=== PATIENT | male | born 1930 | race Caucasian/White ===

== ENCOUNTER 2018-02-11 09:18 | Inpatient (IN) | payer OTHER ==
[~2018-02-11] VITALS: Ht 172.7 cm; Wt 67.6 kg
[~2018-02-11 09:18] MED LIST: ASPIR 8181 MG PO; BACTRIM DS TAB1 EACH PO; CENTRUM SILVER1 EACH PO; CLEOCIN HCL150 MG PO; FISH OIL 1,001000 M2 PO; FLOMAX0.4 MG PO; FOLIC ACID1 MG PO; LORTAB 5-325 M1 EACH PO; METHOTREXATE 22.5 MG PO; NORCO 5-325 TA1 EACH PO; PREDNISONE10 MG PO
[2018-02-11 09:35] VITALS: BP 170/72
[2018-02-11] MEDS ORDERED: CINNAMON500 MG PO (09:39)
[2018-02-11] MEDS ORDERED: FLOMAX0.4 MG PO (09:40)
[2018-02-11] MEDS ORDERED: PROSCAR 5MG TABL5 MG PO (09:40)
[2018-02-11] MEDS ORDERED: CITRACAL + D E1 EACH PO (09:41)
[2018-02-11 09:51] LABS: URINE BILIRUBIN NEGATIVE (Negative); URINE BLOOD NEGATIVE (Negative); URINE CLARITY CLEAR; URINE COLOR YELLOW; URINE GLUCOSE-RANDOM NEGATIVE (Negative); URINE KETONES NEGATIVE (Negative); URINE LEUKOCYTES-REFLEX TRACE (Negative); URINE NITRITE-REFLEX NEGATIVE (Negative); URINE PROTEIN NEGATIVE (Negative); URINE SPECIFIC GRAVITY 1.015 (1.005-1.030); URINE UROBILINOGEN 0.2 E.U./dl (0.2-1.0)
[2018-02-11 09:55] LABS: MCH 32.9 pg (26.0-34.0); MCHC 33.4 g/dL (28.0-37.0); MCV 98.6 fL (80.0-100.0); MPV 9.1 fl. (7.2-11.1); NUCLEATED RBCS 0 /100WBC; PLATELET COUNT* 213 thou/uL (150-400); RBC 3.95 mil/uL (4.50-6.00); WBC 4.4 thou/uL (4.0-11.0)
[2018-02-11 10:00] LABS: ANION GAP 4 mmol/L (7-16); BUN 16 mg/dL (7-18); CALCIUM 8.6 mg/dL (8.5-10.1); CHLORIDE 105 mmol/L (98-107); CO2 34 mmol/L (21-32); CREATININE 1.6 mg/dL (0.6-1.3); GLUCOSE 124 mg/dL (70-99); POTASSIUM 3.8 mmol/L (3.5-5.1); SODIUM 143 mmol/L (136-145)
[2018-02-11 10:06] LABS: ALBUMIN 3.5 g/dL (3.4-5.0); ALKALINE PHOSPHATASE 86 U/L (46-116); LIPASE 191 U/L (73-393); SGOT 19 U/L (15-37); SGPT 23 U/L (30-65); TOTAL BILIRUBIN 0.7 mg/dL (<0.1-1.0); TOTAL PROTEIN 6.5 g/dL (6.4-8.2); TROPONIN-I LEVEL <0.06 ng/mL (<0.06)
[2018-02-11 10:37] LABS: ABSOLUTE EOSINOPHILS 0.2 thou/uL (0.0-0.7); ABSOLUTE LYMPHOCYTES 0.4 thou/uL (0.8-5.3); ABSOLUTE MONOCYTES 0.2 thou/uL (0.0-1.2); ABSOLUTE NEUTROPHILS 3.6 thou/uL (1.6-8.1); PLATELET ESTIMATE ADEQUATE
[2018-02-11 12:41] VITALS: BP 115/58
[2018-02-11 15:06] VITALS: BP 115/58
[2018-02-11 15:26] VITALS: BP 127/63
--- NOTE | 2018-02-11 18:16 | EKG ---
[place] [address] ELECTROCARDIOGRAM REPORT Name: ANGELA CASTILLOJEAN PIERRE Mccloud SR Room: [address] ADM IN .R.#: [id number] Admission: 02/11/18 Attend Phys: Vinh Baltazar MD Discharge: Date of : 32 Report #: [id number] THIS REPORT FOR: //name// [facility] ED Test Date: 2018-02-11 Test Time: 10:19:23 Pat Name: JODY CASTILLO Department: Room: [facility] Gender: M Talent Development Coordinator: ADOLPH : 1930 Requested By: Jesus Drummond Order Number: [id number] MD: Jordy Riley Measurements Intervals [place] Rate: 51 P: 45 NM: 172 QRS: -16 QRSD: 91 T: 64 QT: 431 QTc: 397 Interpretive Statements Sinus bradycardia poor r wave progression Ventricular premature complex Borderline left axis deviation Compared to ECG 02/24/2016 14:00:58 rate increased Electronically Signed On 02-11-2018 18:16:09 CDT by Jordy Riley [email or web address] <ELECTRONICALLY SIGNED> By: Jordy Riley MD, [facility] 02/11/18 1816 1019 [id number] Jordy Riley MD, [facility] /EPI
[2018-02-11 20:40] VITALS: BP 125/57
[2018-02-12 04:10] LABS: ABSOLUTE EOSINOPHILS 0.2 thou/uL (0.0-0.7); ABSOLUTE LYMPHOCYTES 0.5 thou/uL (0.8-5.3); ABSOLUTE MONOCYTES 0.5 thou/uL (0.0-1.2); BASOPHILS 0.7 %; EOSINOPHILS 5.2 %; HEMATOCRIT 32.3 % (42.0-52.0); MCH 33.1 pg (26.0-34.0); MCHC 33.4 g/dL (28.0-37.0); MCV 98.9 fL (80.0-100.0); MONOCYTES 11.8 %; MPV 8.8 fl. (7.2-11.1); NUCLEATED RBCS 0 /100WBC; PLATELET COUNT* 193 thou/uL (150-400); POLYS 71.3 %; RBC 3.27 mil/uL (4.50-6.00); RDW-CV 14.7 % (10.5-14.5); WBC 4.2 thou/uL (4.0-11.0)
[2018-02-12 04:33] LABS: CALCIUM 8.4 mg/dL (8.5-10.1); CREATININE 1.5 mg/dL (0.6-1.3); POTASSIUM 4.5 mmol/L (3.5-5.1)
[2018-02-12 04:48] LABS: HEMOGLOBIN 10.8 gm/dL (14.0-18.0)
[2018-02-12 08:39] VITALS: BP 125/57
== END 2018-02-12 09:50 | disposition home or self-care (01) | DRG 683 ==
LOC: M.ERS 09:18 → M.ORTHSURG 12:37 → M.TBA-ER 12:37 → M.ORTHSURG 14:55
PROVIDERS: Family Medicine; ADMIT Internal Medicine
DX: N17.9 Acute kidney failure, unspecified (principal); N20.2 Calculus of kidney with calculus of ureter; M06.9 Rheumatoid arthritis, unspecified; N40.0 Benign prostatic hyperplasia without lower urinary tract symptoms; M19.90 Unspecified osteoarthritis, unspecified site; N18.3 Chronic kidney disease, stage 3 (moderate); Z87.442 Personal history of urinary calculi; Z88.0 Allergy status to penicillin; Z88.8 Allergy status to other drugs, medicaments and biological substances; Z88.1 Allergy status to other antibiotic agents; Z91.041 Radiographic dye allergy status; Z79.82 Long term (current) use of aspirin; Z79.899 Other long term (current) drug therapy

== ENCOUNTER 2018-02-28 14:01 | Inpatient (IN) | payer OTHER ==
[~2018-02-28] VITALS: Ht 172.7 cm; Wt 65.3 kg
[~2018-02-28 14:01] MED LIST changes: +CINNAMON500 MG PO; +CITRACAL + D E1 EACH PO; +PROSCAR 5MG TABL5 MG PO
[2018-02-28 14:14] VITALS: BP 158/71
[2018-02-28 14:44] LABS: MCH 32.6 pg (26.0-34.0); MCHC 33.3 g/dL (28.0-37.0); MCV 97.8 fL (80.0-100.0); MPV 8.8 fl. (7.2-11.1); NUCLEATED RBCS 0 /100WBC; PLATELET COUNT* 231 thou/uL (150-400); RBC 3.99 mil/uL (4.50-6.00); RDW-CV 14.9 % (10.5-14.5); WBC 5.3 thou/uL (4.0-11.0)
[2018-02-28 14:52] LABS: CALCIUM 9.5 mg/dL (8.5-10.1); CREATININE 1.5 mg/dL (0.6-1.3); POTASSIUM 4.1 mmol/L (3.5-5.1)
[2018-02-28 14:56] LABS: ALBUMIN 3.8 g/dL (3.4-5.0); TOTAL BILIRUBIN 0.6 mg/dL (<0.1-1.0); TOTAL PROTEIN 6.6 g/dL (6.4-8.2)
[2018-02-28 15:24] LABS: ABSOLUTE EOSINOPHILS 0.1 thou/uL (0.0-0.7); ABSOLUTE LYMPHOCYTES 0.4 thou/uL (0.8-5.3); ABSOLUTE MONOCYTES 0.3 thou/uL (0.0-1.2); ABSOLUTE NEUTROPHILS 4.6 thou/uL (1.6-8.1); ATYPICAL LYMPHS 4 %; PLATELET ESTIMATE ADEQUATE
[2018-02-28 17:08] LABS: URINE BILIRUBIN NEGATIVE (Negative); URINE BLOOD 2+ (Negative); URINE CLARITY CLEAR; URINE COLOR YELLOW; URINE GLUCOSE-RANDOM NEGATIVE (Negative); URINE KETONES NEGATIVE (Negative); URINE PROTEIN NEGATIVE (Negative); URINE UROBILINOGEN 0.2 E.U./dl (0.2-1.0)
[2018-02-28 17:14] LABS: URINE LEUKOCYTES-REFLEX 3+ (Negative); URINE NITRITE-REFLEX POSITIVE (Negative)
[2018-02-28 17:23] VITALS: BP 124/70
[2018-02-28 17:36] LABS: SQUAMOUS 0-3 Few /LPF (0-3); URINE RBC 3-10 Few /HPF (0-2); URINE WBC-REFLEX >25 Many /HPF (0-5)
[2018-02-28 17:37] LABS: BACTERIA-REFLEX 1-9 Few /HPF (None Seen); CASTS None Seen /LPF (None Seen); CRYSTALS None Seen /LPF (None Seen); MUCUS 0-3 Light strn/LPF (None Seen)
[2018-02-28 17:50] VITALS: BP 136/81
[2018-02-28 20:15] VITALS: BP 132/68
[2018-03-01 03:25] LABS: HEMATOCRIT 34.5 % (42.0-52.0); HEMOGLOBIN 11.8 gm/dL (14.0-18.0); MCH 33.7 pg (26.0-34.0); MCHC 34.1 g/dL (28.0-37.0); MCV 98.7 fL (80.0-100.0); RBC 3.5 mil/uL (4.50-6.00); RDW-CV 14.5 % (10.5-14.5); WBC 7.8 thou/uL (4.0-11.0)
[2018-03-01 03:58] LABS: CALCIUM 8.3 mg/dL (8.5-10.1); CREATININE 1.4 mg/dL (0.6-1.3); MAGNESIUM 1.9 mg/dL (1.8-2.4); POTASSIUM 4.3 mmol/L (3.5-5.1); TOTAL BILIRUBIN 0.4 mg/dL (<0.1-1.0); TOTAL PROTEIN 5.2 g/dL (6.4-8.2)
[2018-03-01 08:35] VITALS: BP 134/65
[2018-03-01] MEDS ORDERED: AMOXICILLIN 50500 MG PO (09:51)
[2018-03-01 10:01] VITALS: BP 134/65
[2018-03-01 16:39] VITALS: BP 146/55
[2018-03-01 20:15] VITALS: BP 146/58
[2018-03-02 03:59] LABS: HEMATOCRIT 37.6 % (42.0-52.0); HEMOGLOBIN 12.4 gm/dL (14.0-18.0); MCH 32.8 pg (26.0-34.0); MCV 99.2 fL (80.0-100.0); MPV 8.7 fl. (7.2-11.1); RBC 3.79 mil/uL (4.50-6.00); RDW-CV 14.8 % (10.5-14.5); WBC 7.7 thou/uL (4.0-11.0)
[2018-03-02 04:09] LABS: CALCIUM 8.9 mg/dL (8.5-10.1); CREATININE 1.4 mg/dL (0.6-1.3); MAGNESIUM 1.9 mg/dL (1.8-2.4)
[2018-03-02 08:30] VITALS: BP 146/71
--- NOTE | 2018-03-05 18:23 | CON ---
[address] [address] CONSULTATION Name: JODY CASTILLO Rogers HOUSE Room: [address] IN .R.#: [id number] Admission: 02/28/18 Attend Phys: Markus Kinsey, Discharge: 03/02/18 Date of : 32 Report #: [id number] THIS REPORT FOR: //name// CC: Markus Garces CONSULTING PHYSICIAN: Dr. Kinsey. REASON FOR NEPHROLOGY CONSULTATION: Elevated creatinine. REASON FOR ADMISSION: Right flank pain. HISTORY OF PRESENT ILLNESS: This is an 87-year-old male with past medical history of bilateral renal calculi, left renal atrophy who came in with right flank pain and urinary retention on 02/28/2018. Hsu catheter was placed to help relieve his urinary retention. He takes tamsulosin for BPH. He has a history of kidney stones for about [address] Dr[address] Camara from Urology. At this time, on imaging, he was found to have a right ureteral stone, which was 2 mm in his proximal ureter with bilateral hydronephrosis and right hydroureteronephrosis. Hsu catheter was placed. He also has UTI and he was started on treatment for that. Plan is actually for him to go home today and he is going to follow with Urology as an outpatient for ureteroscopy. He does not take any NSAIDs at home and denies any history of diabetes or hypertension. His baseline kidney function shows that he actually has chronic kidney disease stage 3. His baseline creatinine runs from 1.4 to 1.8. He is currently feeling very good. His symptoms have resolved. ALLERGIES: CEFTRIAXONE, CEPHALOSPORINS, CIPROFLOXACIN, CONTRAST DYE, DESIPRAMINE, ETODOLAC, HYDROXYCHLOROQUINE, INDOMETHACIN, OFLOXACIN, QUINOLONES. REVIEW OF SYSTEMS: As mentioned in history of present illness, otherwise negative and his right flank pain is now resolved. MEDICATIONS: Home medications include tamsulosin, methotrexate, prednisone, aspirin, folic acid, fish oil, cinnamon bark, finasteride, calcium, amoxicillin. PAST MEDICAL AND SURGICAL HISTORY: Includes kidney stones, started 15 years ago, left ureter surgery. 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 He had abdominal hernia surgery, prostate biopsy ____, arthritis. Recent diagnosis of nonobstructing right kidney stones and also right hydroureteronephrosis. FAMILY HISTORY: Noncontributory. SOCIAL HISTORY: Does not smoke, drink alcohol or use illicit drug. Lives at home. PHYSICAL EXAMINATION: [place] [address] CONSULTATION Name: JODY CASTILLO Room: [address]#: [id number] Admission: 02/28/18 Attend Phys: Markus Kinsey, Discharge: 03/02/18 Date of : 32 Report #: [id number] VITAL SIGNS: Blood pressure is 146/58, respiratory rate is 18, pulse 77, temperature 36.5 and his pulse ox is 99% on room air. GENERAL: He is awake and alert, oriented x 3. HEAD, EYES, EARS, NOSE AND THROAT: Mucous membranes are moist. NECK: There is no JVD. CHEST: Clear to auscultation bilaterally. No crackles or wheezing. CARDIOVASCULAR: S1, S2 normal. No murmurs or rubs. ABDOMEN: Soft, nondistended, nontender. Bowel sounds are present. EXTREMITIES: There is no lower extremity edema, symmetrical lower extremities. NEUROLOGIC: Gross neurological function is intact. ____ GENITOURINARY: No CVA tenderness. He has a Hsu catheter in place with clear urine. LABORATORY DATA: His hemoglobin is 12.4. Sodium is 145, potassium 4.0 and CO2 is 35, creatinine is 1.4, and magnesium is 1.9. Other labs were reviewed. IMAGING: Abdominal CT was reviewed. ASSESSMENT AND PLAN: 1. 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 UA showed evidence of UTI with 2+ blood, 3-10 rbc's per high power field. No protein on urine dipstick. 2. Bilateral hydronephrosis, right hydroureteronephrosis and right proximal 10 mm stone, Urology is following, also has urinary retention. 3. Acute urinary retention, has a history of benign prostatic hypertrophy, Hsu catheter in place and Urology is following. 4. Right flank pain, which is now resolved. 5. Urinary tract infection. PLAN: 1. Creatinine is actually at the patient's baseline. Avoid NSAIDs and avoid Bactrim. 2. The patient is to follow up with us as an outpatient in 2-3 weeks after discharge, so that we can run a 24-hour urinalysis on him and help with stone prevention. 3. Two liters of water intake recommended along with low-sodium diet. 4. UTI, being treated by primary team with amoxicillin as an outpatient now. Thank you for the consultation and we would love to see him as an outpatient since he does have chronic kidney disease. The [place] [address] CONSULTATION Name: JODY CASTILLO Room: [address]#: [id number] Admission: 02/28/18 Attend Phys: Markus Kinsey, Discharge: 03/02/18 Date of : 32 Report #: [id number] closely followed with Urology. Plan was discussed with the patient, the patient's family as well as the patient's nurse. <ELECTRONICALLY SIGNED> By: Carmen Whitman MD 03/05/18 1823 1008 [id number] Whitman MD /nt
== END 2018-03-02 14:43 | disposition home or self-care (01) | DRG 690 ==
LOC: M.ERS 14:01 → M.ORTHSURG 16:47 → M.TBA-ER 16:47 → M.ORTHSURG 17:01
PROVIDERS: Nurse Practitioner Family; ADMIT Family Medicine
DX: N13.6 Pyonephrosis (principal); M19.90 Unspecified osteoarthritis, unspecified site; N18.3 Chronic kidney disease, stage 3 (moderate); N40.1 Benign prostatic hyperplasia with lower urinary tract symptoms; K57.30 Diverticulosis of large intestine without perforation or abscess without bleeding; R31.9 Hematuria, unspecified; N17.9 Acute kidney failure, unspecified; R33.9 Retention of urine, unspecified; Z79.82 Long term (current) use of aspirin; Z79.899 Other long term (current) drug therapy; Z88.8 Allergy status to other drugs, medicaments and biological substances; Z88.1 Allergy status to other antibiotic agents; Z91.041 Radiographic dye allergy status

== ENCOUNTER → 2018-03-02 | Outpatient (CLI) | payer OTHER ==
[~2018-03-02] MED LIST changes: +AMOXICILLIN 50500 MG PO
== END ==
LOC: M.MRI 14:56
DX: I99.8 Other disorder of circulatory system (principal); R41.3 Other amnesia; F39 Unspecified mood [affective] disorder; R68.89 Other general symptoms and signs

== ENCOUNTER 2018-04-05 13:04 | Emergency (ER) | payer OTHER ==
[~2018-04-05] VITALS: Ht 172.7 cm; Wt 65.3 kg
[2018-04-05] MEDS ORDERED: ARICEPT 5 MG TAB5 MG PO (13:24)
[2018-04-05 14:20] LABS: HEMATOCRIT 39.1 % (42.0-52.0); HEMOGLOBIN 13.2 gm/dL (14.0-18.0); MCH 32.8 pg (26.0-34.0); MCHC 33.7 g/dL (28.0-37.0); MCV 97.2 fL (80.0-100.0); MPV 8.8 fl. (7.2-11.1); NUCLEATED RBCS 0 /100WBC; PLATELET COUNT* 211 thou/uL (150-400); RBC 4.02 mil/uL (4.50-6.00); RDW-CV 14.3 % (10.5-14.5); WBC 6.3 thou/uL (4.0-11.0)
[2018-04-05 14:22] LABS: URINE BILIRUBIN NEGATIVE (Negative); URINE BLOOD 2+ (Negative); URINE CLARITY CLEAR; URINE COLOR YELLOW; URINE GLUCOSE-RANDOM NEGATIVE (Negative); URINE KETONES NEGATIVE (Negative); URINE LEUKOCYTES-REFLEX NEGATIVE (Negative); URINE NITRITE-REFLEX NEGATIVE (Negative); URINE PROTEIN NEGATIVE (Negative); URINE UROBILINOGEN 0.2 E.U./dl (0.2-1.0)
[2018-04-05 14:28] LABS: CALCIUM 9.5 mg/dL (8.5-10.1); CREATININE 1.5 mg/dL (0.6-1.3); POTASSIUM 4.4 mmol/L (3.5-5.1)
[2018-04-05 14:29] LABS: BACTERIA-REFLEX 1-9 Few /HPF (None Seen); CASTS None Seen /LPF (None Seen); MUCUS 0-3 Light strn/LPF (None Seen); SQUAMOUS NONE SEEN /LPF (0-3); URINE RBC 3-10 Few /HPF (0-2); URINE WBC-REFLEX 6-15 Few /HPF (0-5)
[2018-04-05 14:30] LABS: AMORPHOUS URATES Few /LPF (None Seen); CALCIUM OXALATE 4-10 Moderate /LPF (None Seen); CRYSTALS None Seen /LPF (None Seen)
[2018-04-05 14:33] LABS: ALBUMIN 3.6 g/dL (3.4-5.0); TOTAL BILIRUBIN 0.5 mg/dL (<0.1-1.0); TOTAL PROTEIN 6.4 g/dL (6.4-8.2)
[2018-04-05 14:43] LABS: ABSOLUTE LYMPHOCYTES 0.3 thou/uL (0.8-5.3); ABSOLUTE MONOCYTES 0.3 thou/uL (0.0-1.2); ABSOLUTE NEUTROPHILS 5.7 thou/uL (1.6-8.1)
[2018-04-05 14:45] LABS: PLATELET ESTIMATE ADEQUATE
[2018-04-05] MEDS ORDERED: CIPRO500 M1 PO (15:06)
[2018-04-05] MEDS ORDERED: NORCO 5-325 TA1 EACH PO (15:06)
[2018-04-05 15:28] VITALS: BP 137/62
== END 2018-04-05 15:29 | disposition home or self-care (01) ==
LOC: M.ERS 13:04
PROVIDERS: Nurse Practitioner Family
DX: N20.1 Calculus of ureter (principal); N39.0 Urinary tract infection, site not specified; M19.90 Unspecified osteoarthritis, unspecified site; Z88.1 Allergy status to other antibiotic agents; Z91.041 Radiographic dye allergy status; Z88.8 Allergy status to other drugs, medicaments and biological substances; Z90.89 Acquired absence of other organs; Z87.442 Personal history of urinary calculi; Z98.890 Other specified postprocedural states

== ENCOUNTER → 2018-04-08 | Outpatient (CLI) | payer OTHER ==
[~2018-04-08] MED LIST changes: +ARICEPT 5 MG TAB5 MG PO; +CIPRO500 M1 PO
--- NOTE | 2018-04-08 14:35 | EKG ---
[place] [address] ELECTROCARDIOGRAM REPORT Name: ANGELA CASTILLOALD Rogers Room: [facility]#: [id number] Admission: 04/08/18 Attend Phys: Kami Jerome Discharge: Date of : 32 Report #: [id number] THIS REPORT FOR: //name// [facility] Test Date: 2018-04-08 Test Time: 12:41:14 Pat Name: JODY CASTILLO Department: Room: Gender: M Salesforce Business Analyst: : 1930 Requested By: Tee Camara Order Number: [id number] Reading MD: Jordy Riley Measurements Intervals [place] Rate: 52 P: 67 VT: 171 QRS: 12 QRSD: 92 T: 77 QT: 448 QTc: 417 Interpretive Statements Sinus bradycardia Ventricular premature complex Probable anteroseptal infarct, old Compared to ECG 02/11/2018 10:19:23 no change Electronically Signed On 04-08-2018 14:35:22 PRESS BUCKER by Jordy Riley [email or web address] <ELECTRONICALLY SIGNED> By: Jordy Riley MD, [facility] 04/08/18 1435 1241 1241 Jordy Riley MD, [facility] /EPI
== END ==
LOC: M.CRD 12:03
DX: N20.0 Calculus of kidney (principal)

== ENCOUNTER → 2018-04-14 | Day surgery (SDC) | payer OTHER ==
[~2018-04-14] MED LIST changes: +CIPRO250 M1 PO; +LEVSIN0.125 MG SUBLING; +PREDNISONE 5 MG5 M1 PO
--- NOTE | ~2018-04-14 | OP ---
[facility] [address] [place] [address] OPERATIVE REPORT Name: JODY CASTILLO Room: [facility]#: [id number] Admission: 04/14/18 Attend Phys: Kami Jerome Discharge: Date of : 32 Report #: [id number] THIS REPORT FOR: //name// CC: Tee Garces SURGEON: Tee Camara M.D. PREOPERATIVE DIAGNOSES: Right ureteral stone and right kidney stone. PROCEDURES: Panendoscopy and cystoscopy, right retrograde pyelogram, right ureteroscopy, holmium laser stone, extraction of stone and double-J stent. COMPLICATIONS: No complications. INDICATIONS: This is an 87-year-old white male with a history of recurring stones. He has regularly dropped stones into the right ureter. He has a large lower pole stone that is trapped in a tight infundibulum from previous known ureteroscopy. He presents now for extraction of any free-floating stones and laser of the large lower pole stone. He understands the risks of bleeding, infection and another procedure. He understands he may have recurring stones. DESCRIPTION PROCEDURE PERFORMED: Informed consent was obtained. The patient was sterilely prepped and draped in the dorsal lithotomy procedure and given preoperative antibiotics and cystoscopy was carried out. He had moderate bilobar hyperplasia. No abnormalities were seen in the bladder. Right retrograde pyelogram was performed. Ureter was normal. There was probably a stone sitting at the UPJ that was pushed back into the kidney with the retrograde. Sensor wire and ZIPwire were both used. I first attempted to pass the 11 x 13 ureteral access sheath, but it did not go. So, I had to dilate the ureteral orifice using a 15-Korean balloon dilator. Then I was able to get the access sheath up easily. There was still a sort of a kink at the ureteropelvic junction, probably where the stone had been and some tortuosity. I was able though to get the scope through that. The upper poles were all inspected. There was no evidence of any stones in those calices. In the middle calyx, there was one stone that was approximately 4 mm. This was broken up into multiple pieces, less than 1 mm, using the holmium laser and then I was able to access the lower pole area and again found the tight infundibulum and 2 large stones in it, but also some smaller stones that were then broken up into pieces of 2 mm and smaller. I was able to extract some of those pieces, however, but the angle of the scope had to bend and retroflex to get into that lower pole diverticulum. I could only make a couple of different passes and then also had bleeding started from the laser. It was not any excessive bleeding, but in the small tight infundibulum and calyx. The vision was obscured and we had to back off. At that point, a 6 x 28 contour stent was then placed, showing good curl in the kidney and good curl in the bladder. There were some small pieces that were extracted and [place] [address] OPERATIVE REPORT Name: JODY CASTILLO Room: [facility] Alexus#: [id number] Admission: 04/14/18 Attend Phys: Kami Jerome Discharge: Date of : 32 Report #: [id number] The plan will be to have the patient do inversion exercises and then follow up in approximately 2 weeks. Take the stent out and hopefully other pieces will pass. However, the large stone in the infundibulum was not significantly affected. It probably did break in half, but that was about it. I was unable to extract multiple pieces. It would require percutaneous nephrostolithotomy in order to get into that area to adequately take care of that stone. It was decided better not to just break it up into smaller pieces, which may eventually just cause trouble passing as opposed to it is better to leave it in larger pieces. By: [id number] Camara MD /francesco
== END | disposition home or self-care (01) ==
LOC: M.SUR 06:11
DX: N13.2 Hydronephrosis with renal and ureteral calculous obstruction (principal); Z88.8 Allergy status to other drugs, medicaments and biological substances; Z91.041 Radiographic dye allergy status; Z79.82 Long term (current) use of aspirin; Z79.899 Other long term (current) drug therapy